=== PATIENT | female | born 1975 | race Caucasian/White ===

== ENCOUNTER 2019-10-01 01:28 | Inpatient (IN) ==
[2019-10-01] MEDS ORDERED: SOLU-MEDROL IV ONE (02:16)
--- NOTE | 2019-10-01 02:24 | PROVIDER DOCUMENTATION ---
HPI-Respiratory General - General Stated Complaint: respritory Time Seen by Provider: 10/01/19 01:42 Source: patient Allergies/Adverse Reactions: Patient Allergies Allergy/AdvReac Type Severity Reaction Status Date / Time latex Allergy RASH Verified 06/11/19 10:14 shellfish derived Allergy HIVES Verified 06/11/19 10:14 Home Medications: Home Medication List Medication Instructions Recorded Confirmed Last Taken Type Albuterol Sulfate [Proair Hfa] 1 puff IN DAILY PRN 08/22/18 06/11/19 06/11/19 History Atorvastatin Calcium 1 tab PO DAILY 08/22/18 06/11/19 2 Months Ago History ~04/11/19 Hydrochlorothiazide 1 tab PO DAILY 08/22/18 06/11/19 2 Months Ago History ~04/11/19 Cetirizine [Zyrtec] 10 mg PO DAILY #20 tab 06/11/19 Unknown Rx D-Methorphan/P-Epd/Bpm [Bromfed Dm 5 ml PO Q4H PRN #120 ml 06/11/19 Unknown Rx Liquid] Prednisone 20 mg PO DIRECTED #18 tab 06/11/19 Unknown Rx - History of Present Illness-Resp Nature of Presenting Problem: Pt says that she has chronic asthma, but has had increased SOB, inhaler use for 2 weeks. says that she has not had a way to get to PCP in [facility]. Has been trying to avoid coming to ED, due to possible Covid exposure. But she has learned that her the brother of her daughters co-worker, has tested positive, so she figures that she has been exposed, so does not matter anymore. No fever. Has occ cough. CO only with breathing, cough. No abd pain, no N/V/D. Has used her proAir inhaler about 6x today. Quit smoking a year ago Quality of Pain: reports: sharp Review of Systems - Adult - REVIEW OF SYSTEMS - ADULT Constitutional: reports: no symptoms reported Eyes: reports: blurred vision Ears, Nose, Mouth & Throat: reports: other (nose runs) Cardiovascular: reports: no symptoms reported Respiratory: reports: see HPI Gastrointestinal: reports: no symptoms reported Genitourinary: reports: no symptoms reported Musculoskeletal: reports: no symptoms reported Integumentary: reports: no symptoms reported Neurological: reports: no symptoms reported Psychiatric: reports: no symptoms reported Endocrine: reports: no symptoms reported Hematologic/Lymphatic: reports: no symptoms reported Allergic/Immunologic: reports: no symptoms reported Past History - Adult - PAST MEDICAL HISTORY-ADULT Review of Records: reports: Medications Reviewed Major Childhood Illnesses: reports: denies history Cardiovascular: reports: HTN Respiratory: reports: asthma Gastrointestinal: reports: denies history Genitourinary: reports: denies history Musculoskeletal: reports: denies history Neurological: reports: denies history Psychiatric: reports: denies history Endocrine/Immune: reports: denies history Other Conditions: reports: eczema - PRIOR SURGERIES/PROCEDURES Surgical/Procedure History: reports: , tonsillectomy - IMMUNIZATION STATUS Childhood Immunizations: See Nurse Assessment Flu Vaccine: See Nurse Assessment - FAMILY HISTORY Family History: reviewed, not pertinent Physical Exam-General - PHYSICAL EXAM-ADULT Initial Vital Signs Reviewed: Yes - CONSTITUTIONAL General Appearance: appears well, alert, no apparent distress - EYES Eyes: PERRL/EOMI, pink conjunctivae - HEAD, EARS, NOSE, MOUTH & THROAT HENMT: normocephalic/atraumatic, moist mucous membranes, normal ENT inspection, other (OP exam deferred , since pt denies sore throat, contra-indicated during Covid pandemic) - NECK Neck: non-tender, full range of motion, supple - RESPIRATORY Respiratory: lungs clear (but nurse repoted to me that had heard intermittent wheeze), normal breath sounds, no pleuratic chest pain, no respiratory distress, no accessory muscle use - CARDIOVASCULAR Cardiovascular: normal peripheral pulses, regular rate, rhythm, no edema, no murmur - GASTROINTESTINAL (ABDOMEN) Abdominal Exam: non tender, soft - MUSCULOSKELETAL Back Exam: normal inspection, no CVA tenderness, no vertebral tenderness Extremity: normal range of motion, non-tender, normal gait, normal inspection, no pedal edema - SKIN Integumentary: normal color, normal turgor, warm/dry - NEUROLOGIC Neurologic: piper installer II-XII nml as tested, grossly normal, no motor/sensory deficits - PSYCHIATRIC Psych/Mental Status: normal mood/affect, normal thought content, normal thought process, oriented x 3 Progress - PLAN OF CARE/RESULTS Progress/Plan/Lab Results: Vital Signs - 8 hr 10/01/19 02:12 10/01/19 03:56 Temperature 98.7 F Pulse Rate 101 H 94 H Respiratory Rate 20 20 Blood Pressure 152/98 185/91 O2 Sat by Pulse Oximetry 100 98 10/01/19 02:00 Respiratory Syncytial Virus Ag Scrn - Final Nasopharyngeal 10/01/19 02:00 Influenza Screen - Final Nasopharyngeal Laboratory Results - last 24 hr 10/01/19 10/01/19 02:00 02:00 WBC 11.50 H RBC 4.09 L Hgb 7.2 L Hct 27.7 L MCV 67.7 L MCH 17.6 L MCHC 26.0 L RDW Std Deviation 18.7 H Plt Count 351 MPV 10.6 H Immature Gran % (Auto) 0.2 Neut % (Auto) 58.0 Lymph % (Auto) 29.7 Dyer % (Auto) 9.1 Eos % (Auto) 2.7 Baso % (Auto) 0.3 Immature Gran # (Auto) 0.02 Neut # (Auto) 6.67 H Lymph # (Auto) 3.41 H Dyer # (Auto) 1.05 H Eos # (Auto) 0.31 Baso # (Auto) 0.04 Sodium 136 Potassium 3.8 Chloride 99 Carbon Dioxide 22 L Anion Gap 15 BUN 8 Creatinine 0.7 Estimated GFR/1.73 m2 > 60 BUN/Creatinine Ratio 11 Glucose 113 H Calculated Osmolality 271 Calcium 9.4 Orders Category Date Time Status CHEST-1 VIEW [RAD] Stat Exams 10/01/19 02:16 Taken BASIC METABOLIC PANEL [CHEM] Stat Lab 10/01/19 02:00 Completed CBC WITH DIFF [HEME] Stat Lab 10/01/19 02:00 Completed INFLUENZA SCREEN A/B Stat Lab 10/01/19 02:00 Completed RESPIRATORY SYNCYTIAL VIRUS Routine Lab 10/01/19 02:00 Completed Methylprednisolone Sod Succ [Solu-Medrol] Med 10/01/19 02:16 Discontinued 125 mg IV NOW ONE Result Diagrams: 10/01/19 02:00 10/01/19 02:00 - CONSULTS/PCP/HOSPITALIST Notification #1 *Consult/PCP/Hospitalist*: Wade Time Discussed: 04:08 Consult Disposition: Will see in ED, Admit Departure - Departure Date of Disposition Decision: 10/01/19 Time of Disposition Decision: 04:09 DIAGNOSIS: History of asthma Anemia Qualifiers: Anemia type: unspecified type Qualified Code(s): D64.9 - Anemia, unspecified Dyspnea Qualifiers: Dyspnea type: unspecified Qualified Code(s): R06.00 - Dyspnea, unspecified Disposition: ADMITTED INPATIENT 09 Certified Medical Emergency: Emergent Condition: Good Referrals and Follow-Ups: None,PCP [Primary Care Provider] - - Critical Care Note This patient required my direct & personal management of CC.: No Attestation - Physician/ ANAND Attestation Patient care was provided by Advanced Practice Provider:: No The physician spent face to face time with patient:: Yes Advanced Practice Provider documentation review:: Supervising physician onsite and consulted in the evaluation and care of this patient. The physician did have a face to face encounter with the patient.
[2019-10-01 02:38] LABS: BASO# 0.04 X1000 (0.0-0.2); BASO% 0.3 % (0.0-0.8); EOS# 0.31 X1000 (0.0-0.7); EOS% 2.7 % (0.0-10.0); HEMATOCRIT 27.7 % (37.0-47.0); HEMOGLOBIN 7.2 g/dL (12.0-16.0); IMM GRAN# 0.02 X1000 (0.0-0.04); IMM GRAN% 0.2 % (0.0-0.5); LYMPH# 3.41 X1000 (1.2-3.4); LYMPH% 29.7 % (20.5-51.1); MCH 17.6 PG (27-31); MCV 67.7 FL (81-99); MONO# 1.05 X1000 (0.11-0.59); MONO% 9.1 % (1.7-9.3); MPV 10.6 FL (7.4-10.4); NEUT# 6.67 X1000 (1.4-6.5); PLT 351 X1000 (130-400); RBC 4.09 XMIL (4.2-5.4); RDW 18.7 % (11.5-14.5)
[2019-10-01 02:54] LABS: AGAP 15; BUN 8 mg/dL (8-22); CALCIUM 9.4 mg/dL (8.8-10.2); CHLORIDE 99 mmol/L (98-107); COSMO 271; CREATININE 0.7 mg/dL (0.5-0.9); ESTIMATED GFR > 60; GLUCOSE 113 mg/dL (70-104); POTASSIUM 3.8 mmol/L (3.5-5.1); SODIUM 136 mmol/L (136-145); TCO2 22 mmol/L (25-35)
[2019-10-01 04:51] LABS: IRON SATURATION 4 %; TIBC 423 ug/dL; TOTAL IRON 16 ug/dL (49-151); UNBOUND IRON 407 ug/dL (112-346)
--- NOTE | 2019-10-01 05:30 | HISTORY AND PHYSICAL ---
PRIMARY CARE PROVIDER: None. CHIEF COMPLAINT: Shortness of breath x2 weeks. HISTORY OF PRESENTING ILLNESS: This is a 44-year-old obese female with a history of asthma, who had presented to the emergency department with a two week history of having shortness of breath. The patient states that she was using an inhaler, but she did not have any improvement. She was also having some mild chest discomfort during this time. The patient states that her daughter's co-worker's brother apparently was infected with COVID-19 and she was concerned about that. She was seen in the ED. Due to her presenting symptoms we will place her on observation for further evaluation and management. At the time of my examination, the patient denied any headache, fever, chills, hemoptysis, melena, or weight changes, but complained of shortness of breath. PAST MEDICAL HISTORY: Asthma. PAST SURGICAL HISTORY: Tonsillectomy. ALLERGIES: Latex. CURRENT MEDICATIONS: Albuterol, ProAir inhaler daily, atorvastatin 80 mg p.o. daily, and hydrochlorothiazide 25 mg p.o. daily. SOCIAL HISTORY: She denies any history of smoking. Admits to social alcohol use. She denies any illicit drug use. FAMILY HISTORY: No history of coronary artery disease. REVIEW OF SYSTEMS: A 14-point review of systems was assessed all other systems are negative. PHYSICAL EXAMINATION: GENERAL: Cooperative, friendly, and obese female who is resting more comfortably now. VITAL SIGNS: Temperature 98.7 degrees, pulse 101, respirations 20, blood pressure 152/98. HEENT: Atraumatic, normocephalic. Extraocular movements intact. PERRLA. NECK: No masses. CHEST: Scattered wheezes. CARDIOVASCULAR: Regular rate and rhythm. S1, S2. ABDOMEN: Soft, obese and positive bowel sounds. EXTREMITIES: No edema. NEUROLOGIC: She is awake, alert, and oriented x3. : No bladder distention. SKIN: Warm. LABORATORIES STUDIES: WBC 11.50, hemoglobin 7.2, hematocrit 27.7, platelets 351,000, sodium 136, potassium 3.8, chloride 99, CO2 22, BUN 8, creatinine 0.7, and glucose 113. IMAGING STUDIES: Chest x-ray is negative. ASSESSMENT: This is a 44-year-old obese female who presented to the emergency department with a two-week history of having shortness of breath. She was evaluated in the emergency department. It was suspected she possibly had an asthma exacerbation and also possibility of anemia contributing to her symptoms. We will place the patient on observation for further workup. 1. Dyspnea. 2. Asthma exacerbation. 3. Anemia unspecified. PLAN: 1. Admit the patient to medical floor with telemetry. 2. Continue patient on supplemental oxygen. 3. Continue with albuterol inhaler and Solu-Medrol. 4. Get iron studies. 5. Continue to follow, reassess, and make further recommendations based on the patient's clinical course. cc: Sanjay Olvera MD MTDD
[2019-10-01] MEDS ORDERED: ZOFRAN IV PRN (05:56)
[2019-10-01] MEDS ORDERED: TYLENOL PO PRN (05:56)
--- NOTE | 2019-10-01 06:18 | Diag Imaging Result Doc PS360 ---
EXAM: CHEST-1 VIEW HISTORY: SOB TECHNIQUE: Single view COMPARISON: 06/11/2019 FINDINGS: The lungs are well expanded. The heart is not enlarged. The vessels are not distended. There are no infiltrates. No effusion identified. IMPRESSION: Negative exam. Electronically signed by Rohit Garcia 10/01/2019 6:16 AM
[2019-10-01] MEDS: COMBIVENT RESPIMAT INHALER INH SCH ×3 (11:42→22:17)
[2019-10-01] MEDS: SOLU-MEDROL IV SCH ×2 (12:06→21:22)
--- NOTE | 2019-10-01 13:46 | PROGRESS NOTE ---
DATE: 10/01/2019 SUBJECTIVE: Ms. Mccarthy is a 44-year-old who presented with shortness of breath. She does not have a primary care physician. Complaining of shortness of breath for 2 weeks. He has a history of asthma. Presented to the emergency room with a week history of shortness of breath. The patient says she was using an inhaler, did not have any improvement. She is also having mid chest discomfort. The patient states that her daughter's coworker's brother apparently was infected with Covid-19 and she was concerned about that. She was seen in the emergency room. Placed her in observation for further management and I believe tested her for Covid-19. Do not have the results back. PAST MEDICAL HISTORY: Asthma, history of tonsillectomy. OBJECTIVE: General: She is breathing comfortably, looks comfortable at this time. Vital Signs: She has remained afebrile, temperature 98.2 degrees, pulse 100, respirations 20, blood pressure 128/55. HEENT: Pupils are equal and round. Lungs: Clear anterolateral and posterior. Cardiovascular: Regular rhythm and rate without murmur or S3. Abdomen: Soft. Skin: Warm and dry. LABORATORY DATA: White blood cell count 11,500, hematocrit 27, hemoglobin 7, platelet count 351,000. Sodium 136, potassium 3.8, chloride 99, BUN 8, creatinine 0.7. Her chest x-ray on admission was negative. No sign of infiltrate. ASSESSMENT AND PLAN: Some bronchospasm, very much could be from the pollen. She was tested for Covid-19. We do not have those results back yet. She feels better. I will continue the methylprednisone. Bronchospasm is improved. She is on ipratropium albuterol combination inhaler q.6 hours, 1 puff, and hopefully we can go home tomorrow. Review of her home medications: She was on Symbicort 80/4.5 two puffs twice a day and so see if we can put her back on that. cc: Nabil Pedersen MD
[2019-10-01] MEDS: SYMBICORT 80/4.5 MICROGM INHALER INH SCH (22:17)
[2019-10-02] MEDS: COMBIVENT RESPIMAT INHALER INH SCH ×2 (03:27→10:05)
[2019-10-02] MEDS: SOLU-MEDROL IV SCH (04:09)
[2019-10-02 06:13] LABS: BASO# 0.01 X1000 (0.0-0.2); BASO% 0.1 % (0.0-0.8); HEMATOCRIT 27.4 % (37.0-47.0); HEMOGLOBIN 7.1 g/dL (12.0-16.0); IMM GRAN# 0.07 X1000 (0.0-0.04); IMM GRAN% 0.5 % (0.0-0.5); LYMPH# 1.66 X1000 (1.2-3.4); LYMPH% 11.1 % (20.5-51.1); MCH 17.6 PG (27-31); MCHC 25.9 g/dL (33-37); MONO# 0.71 X1000 (0.11-0.59); MONO% 4.7 % (1.7-9.3); MPV 11.1 FL (7.4-10.4); NEUT# 12.57 X1000 (1.4-6.5); NEUT% 83.6 % (42.2-75.2); PLT 382 X1000 (130-400); RBC 4.03 XMIL (4.2-5.4); RDW 18.7 % (11.5-14.5); WBC 15.02 X1000 (4.8-10.8)
[2019-10-02 06:37] LABS: AGAP 14; BUN 12 mg/dL (8-22); CALCIUM 9.6 mg/dL (8.8-10.2); CHLORIDE 102 mmol/L (98-107); COSMO 276; CREATININE 0.6 mg/dL (0.5-0.9); ESTIMATED GFR > 60; GLUCOSE 136 mg/dL (70-104); POTASSIUM 4.3 mmol/L (3.5-5.1); SODIUM 137 mmol/L (136-145); TCO2 21 mmol/L (25-35)
[2019-10-02 07:20] LABS: ANISOCYTOSIS 1+; BANDS 2 % (0-1); HYPOCHROM 2+; LYMPHS 10 % (21-51); MICROCYTOSIS 2+; SEGS 88 % (42-75)
[2019-10-02 08:13] VITALS: BP 151/68
[2019-10-02] MEDS: SYMBICORT 80/4.5 MICROGM INHALER INH SCH (10:05)
--- NOTE | 2019-10-02 10:18 | DISCHARGE SUMMARY ---
ADMISSION DATE: 10/01/2019 DISCHARGE DATE: 10/02/2019 She presented with shortness of breath. A 44-year-old female with history of asthma who presented to the emergency department with 2 week history of having shortness of breath. The patient has been using inhaler, but not having improvement. She was also having some mid chest discomfort. The patient states that her daughter's coworker's brother apparently was infected with COVID-19, concerned about that. She was seen in the emergency room, presenting symptoms on observation, decided to admit her for observation. Her wheezing and asthma improved. They did note that her hematocrit was 27, hemoglobin 7.1 with an MCV of 68, so microcytic anemia. She has not had any complaints of bleeding or noticing blood in her bowels or heavy menstrual periods, but we will put her on iron and we put her on a steroid inhaler. She is on ipratropium, albuterol breathing treatments here in the hospital. It was felt she could go home. Electrolytes look good and B12 level was 300, folate was 9.1. She had no sign of bacterial infection or sepsis. We did check her for COVID-19 and this is still pending. Chest x-ray, clear, no sign of infiltrate. So, I will let her go home. Encouraged her to wash her hands and stay in isolation for at least another week. Will put her on Symbicort 80/4.5 twice a day and she can take her inhaler home with her. I want her to follow up on her blood count. I am going to put her on iron tablets once a day as well and I want her to follow up with primary care and follow up with her blood counts for her microcytic anemia. cc: Nabil Pedersen MD
== END 2019-10-02 12:12 | disposition home or self-care (01) | DRG 202 ==
LOC: ED 01:28 → 4N 01:28 → SUATTDRO 05:12 → OBSVTOIN 05:12
PROVIDERS: ATTEND Emergency Medicine